=== PATIENT | female | born 1995 | race Caucasian/White ===

== ENCOUNTER 2017-03-23 05:28 | Inpatient (IN) | payer BC ==
[2017-03-23 06:49] LABS: Urine Bilirubin Negative (Negative); Urine Glucose Negative (Negative); Urine Nitrite Negative (Negative)
[2017-03-23 07:06] LABS: Benzodiazepine Urine Screen None Detected (None Detect)
[2017-03-23 07:08] LABS: Hematocrit 40 % (35-47); Hemoglobin 13.4 g/dl (12.0-16.0); Mean Corpuscular HGB Conc 34 g/dl (31-36); Mean Corpuscular Hemoglobin 29 pg (27-31); Mean Corpuscular Volume 85 fL (80-97); Mean Platelet Volume 7 um3 (7.4-10.4); Red Blood Count 4.68 10^6/ul (4.0-5.4); Red Cell Distribution Width 14 % (10.5-15)
[2017-03-23 07:36] LABS: ALT 14 U/L (7-52); Albumin 4.4 g/dL (3.2-5.2); Alkaline Phosphatase 63 U/L (34-104); BUN/Creatinine Ratio 7.8 (8-20); Blood Urea Nitrogen 6 mg/dL (6-24); CO2 Carbon Dioxide 22 mmol/L (22-32); Calcium 9.6 mg/dL (8.6-10.3); Chloride 105 mmol/L (101-111); EGFR African American 124.2 (>60); EGFR Non-African American 96.6 (>60); Globulin 3.9 g/dL (2-4); Glucose 72 mg/dL (70-100); Sodium 136 mmol/L (133-145); Total Protein 8.3 g/dL (6.4-8.9)
[2017-03-23 07:53] LABS: Acetaminophen < 15 mcg/mL; Alcohol 154 mg/dL (<10); Salicylate < 2.50 mg/dL (<30)
[2017-03-23 08:08] LABS: TSH (Thyroid Stimulating Horm) 2.55 mcIU/mL (0.34-5.60)
[2017-03-23 09:14] LABS: Anion Gap 9 mmol/L (2-11)
--- NOTE | 2017-03-23 12:42 | CONSULT ---
Consult Consult: Ms. Medina presented on a previous shift with thoughts of cutting her wrists. She was medically cleared and had a MHE. They offered her a voluntary admission and she agreed. She is being admitted in stable condition with a diagnosis of depression
[2017-03-23] MEDS: TRI LINYAH PO SCH (22:08)
[2017-03-24] MEDS ORDERED: Acetaminophen TAB* 325 MG PO PRN (00:42)
[2017-03-24] MEDS ORDERED: Al Hydrox/Mg Hydrox/Simet LIQ* 30 ML UDC PO PRN (00:42)
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
[2017-03-24] MEDS: Vitamin THERAPEUTIC TAB PO SCH (08:25)
--- NOTE | 2017-03-24 15:59 | PN ---
Subjective - Subjective Service Type: 77339 Hosp care 25 min moderate complexity Subjective: Patient visiting with her mother, father and stepmother and agreed to discuss treatment with caption writer with all present. Patient presents as euthymic with full range of affect. She reports eagerness to be discharged and return to academic responsibilities. Patient endorses mild depressive symptoms with an onset in early adolescence. She denies desire for antidepressant medication and agrees to engage in therapy. She and her parents are planning to assist her in moving to an on-campus housing situation to be closer to her friends who live on- campus. In the meantime, she will return home or stay with friends. Patient denies problematic drinking and we discussed impact of alcohol on decision making and mood. Her parents encouraged her to decrease her alcohol use. Parents and patient are agreeable to continue hospitalization today to benefit from programming and evaluation. Will plan for potential discharge tomorrow. Objective - Appearance Appearance: Well Developed/Nourished Dysmorphic Features: Yes Hygiene: Normal Grooming: Fairly Well Kept - Behavior Psychomotor Activities: Normal Exhibits Abnormal Movement: No - Attitude and Relatedness Attitude and Relatedness: Cooperative Eye Contact: Fair - Speech Quality: Unpressured Latencies: Normal Quantity: Appropriate - Mood Patient's Decription of Mood: "Okay" - Affect Observed Affect: Good Affect Consistent with: Euthymia - Thought Process Patient's Thought Process: Coherent, Goal Directed Thought Content: No Passive Wish, No Suicidal Planning, No Homicidal Ideation, No Paranoid Ideation - Sensorium Experiencing Hallucinations: No, Sensorium is Clear Type of Hallucinations: Visual: No, Auditory: No, Command: No - Level of Consciousness Level of Consciousness: Alert Orientation: Yes Intact, Yes Orientated to Time, Yes Orientated to Place, Yes Orientated to Person - Impulse Control Impulse Control: Tenuous - Insight and Judgement Insight and Judgement: Fair - Group Participation Particating in Group Activities: Yes - Medication Management Medication Management Adherence: Yes Assessment - Assessment Merits Inpatient Hospitalization: For Immediate Safety, For Stabilization, For Discharge Planning, Pending Safe DC Plan Inpatient DSM-IV Dx: unspecified depressive d/o; alcohol use d/o Plan - Plan Treatment Plan: Name: MICHELLE MEI Birthdate: 1995 [id number] continue acute intensive psychiatric treatment. patient declines offer of antidepressants or medications for alcohol use. Continued Medication Management: Consider Medication Medications: Current Medications Acetaminophen (Tylenol Tab*) 650 mg PO Q4H PRN PRN Reason: PAIN or TEMP > 101 F Al Hydrox/Mg Hydrox/Simethicone (Maalox Plus*) 30 ml PO Q4H PRN PRN Reason: INDIGESTION Multivitamins (Theragran Tab*) 1 tab PO DAILY [facility] Last Admin: 03/24/17 08:25 Dose: Not Given Pto: Tri-Linyah ( Norgestimate And Ethinyl Estradiol) 1 dose PO BEDTIME [facility] Last Admin: 03/23/17 22:08 Dose: 1 dose - Discharge Plan Discharge Plan: Outpatient Follow Up
[2017-03-24] MEDS: TRI LINYAH PO SCH (20:54)
[2017-03-25 07:50] VITALS: BP 120/67
[2017-03-25] MEDS: Vitamin THERAPEUTIC TAB PO SCH (09:35)
--- NOTE | 2017-03-25 12:09 | DS ---
CC: [facility]; NILDA Knowles, [place] * DATE OF ADMISSION: 03/23/2017. DATE OF DISCHARGE: 03/25/2017. SUPERVISING PSYCHIATRIST: Dr. Bc Fontana * (dictated by TIARA Santamaria ). DISCHARGE DIAGNOSES: Unspecified depressive disorder and alcohol use disorder. CONDITION AT THE TIME OF DISCHARGE: Improved. The patient is euthymic and interactive. She denies suicidal ideation or depressed mood. She reports improvement in stress tolerance. She and her family have identified plans for her after discharge, including changing her residence so that she is closer to her friends. She states that she is planning on decreasing her workload next semester and that the most hectic part of the current semester has already passed. She is planning to decrease her alcohol intake and has spoken with her friends and family members about this. She denies offer of substance use treatment referrals. She denies suicidal ideation and she denies HI or . She is agreeable to continue outpatient mental health services on [facility] as she had tried to establish care prior to admission. The patient denies urges to self-harm. MENTAL STATUS EXAM: Evelyn is a thin-framed, 21-year-old, white female with dark hair in a messy bun. She is adequately groomed, wearing her own clothing and wears large dark-rimmed glasses. She is pleasant and cooperative and talkative. No psychomotor abnormalities are observed. She is alert and oriented times three. She has good eye contact. Her speech is normal rate and rhythm and articulate. Her affect is full and congruent. She reports her mood is "good." Thought process is linear, goal-directed and coherent. She denies suicidal ideation, A/V hallucinations, delusions, or urges for self-harm. Insight and judgment are fair to good. Impulse control is good. Her fund of knowledge is excellent. DISCHARGE INSTRUCTIONS: Instructions to be given to the patient by nursing staff. A. Medications: The patient declined psychotropic medications and will continue oral contraceptive as prescribed by her primary care provider. No prescriptions are necessary. B. Diet: Regular. C. Activity: Ambulation as tolerated. Tobacco cessation is not applicable and there are no pending labs or diagnostic studies at the time of discharge. D. Follow-up care: The patient will follow-up with [facility] and appointments are made by social work. She will follow-up with her primary care provider as needed for oral contraceptive and any other medical needs. HOSPITAL COURSE: A. Reason for admission: The patient presented to the emergency department with her parents in the context of self-harm and alcohol intoxication. B. Psychiatric treatment rendered: The patient was admitted on the Adult Behavioral Services Unit on voluntary status. Code status was full. She was placed on 15 minute checks for safety and encouraged to participate in supportive milieu, individual sessions with staff and psychoeducational groups. She was pleasant and in behavioral control. She participated in unit programming and completed an MMPI. Please see consultation report by psychologist Dr. West Shay for full MMPI results. Wire Lather met with patient and her parents during visiting hours yesterday and discussed events leading to admission, treatment and discharge planning. The patient was agreeable to remain throughout the day and evening to gain full benefit of admission, including programming, evaluation by staff and discharge planning. The patient identified planning for discharge the following morning as a goal and family members were agreeable to this plan. Today, the patient reports that she slept fairly well, except due to environmental interruptions. She continues to deny suicidal ideation or passive wish. She has made plans to resume academic responsibilities tomorrow and plans to take today off to spend with her family. The patient will be discharged with written instructions explained to her by nursing staff. The patient is awaiting her father's arrival for discharge. CECILIO PAEZ NP [id number]/CPS #: [id number] RICHARD
== END 2017-03-25 11:05 | disposition home or self-care (01) | DRG 754 ==
LOC: ED 05:28 → BSU 10:34
PROVIDERS: ADMIT Psychiatry & Neurology Psychiatry; ATTEND Psychiatry & Neurology Psychiatry
DX: F32.9 Major depressive disorder, single episode, unspecified (principal); F10.129 Alcohol abuse with intoxication, unspecified; Y90.6 Blood alcohol level of 120-199 mg/100 ml; Z79.3 Long term (current) use of hormonal contraceptives
CPT/HCPCS: 36415; 80053; 80307; 80320; 80329; 81003; 84443; 84702; 85025; 86703; 99222; 99232; 99238; A9270-GY; G0480